=== PATIENT | female | born 1975 | race Caucasian/White ===

== ENCOUNTER → 2025-06-30 08:53 | Outpatient (CLI) | payer OTHER, SELFPAY ==
[2025-06-30 09:11] LABS: Hematocrit 44.3 % (36-46); Hemoglobin 15.2 g/dL (12.0-16.0); Mean Corpuscular HGB Conc 34.3 % (30-36); Mean Corpuscular Hemoglobin 32.6 PG (26-34); Mean Corpuscular Volume 95.0 fL (80-100); Platelet Count 340 X10^3/uL (150-400)
[2025-06-30 10:01] LABS: Alanine Aminotransferase 83 IU/L (<35); Albumin 4.2 g/dL (3.5-5.0); Albumin Globulin Ratio 1.5 (1.0-2.8); Alkaline Phosphatase 99 U/L (38-126); Blood Urea Nitrogen 16 mg/dL (7-17); Calcium 9.7 mg/dL (8.4-10.2); Carbon Dioxide 19 mmol/L (22-32); Chloride 109 mmol/L (98-107); Estimated Glomerular Filt Rate > 60 mL/min (>60); Globulin 2.8 g/dL (1.7-4.1); Glucose 95 mg/dL (70-99); HEMOLYSIS < 15 (0-50); Potassium 4.8 mmol/L (3.4-5.1); Sodium 139 mmol/L (137-145); Total Protein 7.0 g/dL (6.3-8.2)
[2025-06-30 10:17] LABS: Free T3, Triiodothyronine Free 3.97 pg/mL (2.77-5.27); Vitamin D 25 Hydroxy (D3) 15.4 ng/mL (30.0-100.0)
[2025-07-01 08:08] LABS: CRP, High Sensitivity 1.59 mg/L (0.00-3.00)
[2025-07-03 07:09] LABS: Insulin Level Total 23.3 uIU/mL (2.6-24.9)
== END ==
PROVIDERS: PCP Family Medicine; Referring Provider Family Medicine; Visit Provider Family Medicine
DX: Z00.00 Encounter for general adult medical examination without abnormal findings (principal); E66.9 Obesity, unspecified; N95.1 Menopausal and female climacteric states; E55.9 Vitamin D deficiency, unspecified
CPT/HCPCS: 36415; 80053; 82306; 83525; 84481; 85027; 86140